=== PATIENT | female | born 1955 | race Caucasian/White ===

== ENCOUNTER 2022-11-01 05:16 | Day surgery (SDC) | payer MEDICARE, SELFPAY ==
[2022-09-07 15:15] VITALS: BMI 27.4
[2022-10-18 14:00] VITALS: BMI 27.4
--- NOTE | 2022-10-31 17:59 | PM.HPGS ---
History of Present Illness History of Present Illness Consent: Risks, benefits, and alternatives have been discussed and questions answered. Patient agrees to proceed with procedure. Chief complaint: family hx colon ca, neoplasm screening Narrative: Es Samson is a 67 year old female who was referred for colon cancer screening. Review of Systems Review of Systems: All systems reviewed & are unremarkable except as noted in HPI and below PMFSH Family History Family History Mother Hypertension Family history of diabetes mellitus in first degree relative Father Family history of diabetes mellitus in first degree relative Sibling Family history of diabetes mellitus in first degree relative Other Carcinoma of colon Family history of malignant neoplasm of male breast Social History Social History Smoking packs per day: 1 Smoking cigarettes per day: 20.0 Years smoked: 31 Smoking pack-years: 31.00 Smoking status: Former smoker Tobacco type: cigarettes Alcohol intake: current Drinks per week: 7 Substance use: current Substance use type: marijuana Last use: 2x weekly Living arrangements: with family Spiritual care concerns: No Meds Home Medications and Allergies Home Medications Medication Instructions Recorded Confirmed Type aripiprazole 5 mg tablet 5 mg PO DAILY 09/07/22 09/07/22 History benazepril 20 mg tablet 20 mg PO DAILY 09/07/22 09/07/22 History carvedilol 12.5 mg tablet 12.5 mg PO BID 09/07/22 09/07/22 History escitalopram oxalate 20 mg tablet 20 mg PO DAILY 09/07/22 09/07/22 History metformin 500 mg tablet,extended 1,000 mg PO BID 09/07/22 09/07/22 History release 24 hr rosuvastatin 20 mg tablet 10 mg PO DAILY 09/07/22 09/07/22 History trazodone 50 mg tablet 100 mg PO HS 09/07/22 09/07/22 History Allergies Allergy/AdvReac Type Severity Reaction Status Date / Time amoxicillin [From Augmentin] Allergy Hives Verified 11/01/22 06:21 clavulanic acid Allergy Hives Verified 11/01/22 06:21 [From Augmentin] Penicillins Allergy Hives Verified 11/01/22 06:21 Exam Const: General: alert Orientation/consciousness: patient oriented x3 Resp: Auscultation: clear to auscultation bilaterally Cardio: Rhythm: regular rhythm GI: GI Palp: Yes Soft to palpation and No Tenderness to palpation present (GI) Neuro: General: patient oriented x3 Assessment and Plan Assessment and plan (1) Colon cancer screening: Code(s): Z12.11 - Encounter for screening for malignant neoplasm of colon Status: Acute Assessment and Plan: Colonoscopy with possible biopsy or polypectomy or cautery or injection of substances.
[2022-11-01 06:22] VITALS: BP 166/83; PULSE 78; RESP 18; TEMP 36.6; O2SAT 97
[2022-11-01] MEDS: LACTATED RINGERS 1,000 ML 150 ML IV CONT (06:36)
[2022-11-01 06:43] LABS: Glucose Point of Care 146 mg/dl (65-105)
--- NOTE | 2022-11-01 07:15 | WPDANESEPPF ---
Anes - Initial Pre Proc Eval Procedure: Operation Date: 11/01/22 07:30 Proposed Procedures p Screening Colonoscopy - Josue Jack MD Date/Time: 11/01/22 07:15 Surgeon: Josue Jack MD Pre Op Diagnosis: family hx colon ca, neoplasm screening Patient Data Age: 67 Gender: F Height: 1.52 m Weight: 65.1 kg Last Vital Signs Temp 97.8 F 11/01/22 06:22 Pulse 78 11/01/22 06:22 Resp 18 11/01/22 06:22 BP 166/83 H 11/01/22 06:22 Pulse Ox 97 11/01/22 06:22 O2 Del Method Room Air 11/01/22 06:22 Allergies Allergy/AdvReac Type Severity Reaction Status Date / Time amoxicillin [From Augmentin] Allergy Hives Verified 11/01/22 06:21 clavulanic acid Allergy Hives Verified 11/01/22 06:21 [From Augmentin] Penicillins Allergy Hives Verified 11/01/22 06:21 Home Medications Medication Instructions Recorded Confirmed Type aripiprazole 5 mg tablet 5 mg PO DAILY 09/07/22 09/07/22 History benazepril 20 mg tablet 20 mg PO DAILY 09/07/22 09/07/22 History carvedilol 12.5 mg tablet 12.5 mg PO BID 09/07/22 09/07/22 History escitalopram oxalate 20 mg tablet 20 mg PO DAILY 09/07/22 09/07/22 History metformin 500 mg tablet,extended 1,000 mg PO BID 09/07/22 09/07/22 History release 24 hr rosuvastatin 20 mg tablet 10 mg PO DAILY 09/07/22 09/07/22 History trazodone 50 mg tablet 100 mg PO HS 09/07/22 09/07/22 History Laboratory Tests 11/01/22 06:35 POC Capillary Glucose 146 H mg/dl (65-105) Patient hx anesthesia problems: none Family hx anesthesia problems: none Results Review: All pre-operative results and documents have been reviewed as part of the pre-operative evaluation. [facility] Family History Family History Mother Hypertension Family history of diabetes mellitus in first degree relative Father Family history of diabetes mellitus in first degree relative Sibling Family history of diabetes mellitus in first degree relative Other Carcinoma of colon Family history of malignant neoplasm of male breast Social History Social History Smoking packs per day: 1 Smoking cigarettes per day: 20.0 Years smoked: 31 Smoking pack-years: 31.00 Smoking status: Former smoker Tobacco type: cigarettes Alcohol intake: current Drinks per week: 7 Substance use: current Substance use type: marijuana Last use: 2x weekly Living arrangements: with family Spiritual care concerns: No Anes - Eval Final PreProcedure Day of Procedure 11/01/22 07:15 Patient weight: normal Heart: regular rate and rhythm Lungs: clear to auscultation Airway: Mallampati scale class II Neurological: alert and oriented Last oral intake: >/= 8 hours ASA classification: III Emergent: no Anesthetic plan: proceed Anesthesia type and monitoring: general GIVS and standard monitoring Results Review: All pre-operative results and documents have been reviewed as part of the pre-operative evaluation. Informed Consent: The patient's anesthetic plan and its attendant risks and benefits were discussed with the patient/family/POA. Questions were solicited and answers provided to the satisfaction of the patient/family/POA.
[2022-11-01 07:45] VITALS: BP 119/81; PULSE 82; RESP 20; O2SAT 95
[2022-11-01 07:55] VITALS: BP 153/100; PULSE 74; RESP 15; O2SAT 96
[2022-11-01 08:05] VITALS: BP 160/100; PULSE 68; RESP 17; O2SAT 97
== END 2022-11-01 08:17 | disposition home or self-care (01) ==
PROVIDERS: PCP Family Medicine; Visit Provider Internal Medicine Gastroenterology
PROC: 0DJD8ZZ Inspection of Lower Intestinal Tract, Via Natural or Artificial Opening Endoscopic (ICD-10-PCS; CPT 45378; principal; 2022-11-01 07:30)
DX: Z12.11 Encounter for screening for malignant neoplasm of colon (principal); K57.30 Diverticulosis of large intestine without perforation or abscess without bleeding; D12.8 Benign neoplasm of rectum; Z80.0 Family history of malignant neoplasm of digestive organs; Z79.84 Long term (current) use of oral hypoglycemic drugs; Z87.891 Personal history of nicotine dependence; F12.90 Cannabis use, unspecified, uncomplicated
CPT/HCPCS: 45385; 82948; 88305; J2704; J7120